=== PATIENT | male | born 1970 | race Caucasian/White ===

== ENCOUNTER 2019-11-25 16:32 | Emergency (ER) | payer OTHER ==
[~2019-11-25] VITALS: Ht 185.4 cm; Wt 102.3 kg
[2019-11-25 16:37] VITALS: BP 141/90
[2019-11-25] MEDS ORDERED: sulfamethoxazole/trimethoprim DS (800/160mg) tablet PO ONE (17:30)
[2019-11-25] MEDS ORDERED: SULF1TAB49 PO (17:43)
== END 2019-11-25 18:06 | disposition home or self-care (01) ==
LOC: ER 16:32
DX: L02.511 Cutaneous abscess of right hand (principal); M25.522 Pain in left elbow; M25.422 Effusion, left elbow; F12.90 Cannabis use, unspecified, uncomplicated; F15.90 Other stimulant use, unspecified, uncomplicated; F14.90 Cocaine use, unspecified, uncomplicated; Z72.89 Other problems related to lifestyle; Z79.2 Long term (current) use of antibiotics
CPT/HCPCS: 76882; 99284

== ENCOUNTER 2021-06-21 03:52 | Emergency (ER) | payer MEDICAID ==
[~2021-06-21] VITALS: Ht 188 cm; Wt 69.1 kg
[2021-06-21 04:07] VITALS: BP 146/92
== END 2021-06-21 16:38 | disposition left against medical advice (07) ==
LOC: ER 03:53
DX: L08.9 Local infection of the skin and subcutaneous tissue, unspecified (principal); Z53.21 Procedure and treatment not carried out due to patient leaving prior to being seen by health care provider

== ENCOUNTER 2022-05-23 10:56 | Emergency (ER) | payer MEDICAID ==
[~2022-05-23] VITALS: Ht 188 cm; Wt 93.2 kg
[2022-05-23] MEDS ORDERED: amLODIPine 5mg tablet PO ONE (11:10)
[2022-05-23] MEDS ORDERED: AMLO5TAB4 PO (11:12)
[2022-05-23 11:35] VITALS: BP 134/99
== END 2022-05-23 11:37 ==
LOC: ER 10:57
DX: I10 Essential (primary) hypertension (principal); F12.90 Cannabis use, unspecified, uncomplicated; F15.90 Other stimulant use, unspecified, uncomplicated; F14.90 Cocaine use, unspecified, uncomplicated; Z72.89 Other problems related to lifestyle; Z79.899 Other long term (current) drug therapy
CPT/HCPCS: 99283

== ENCOUNTER 2022-09-22 00:29 | Emergency (ER) | payer MEDICAID ==
[~2022-09-22] VITALS: Ht 188 cm; Wt 83.2 kg
[~2022-09-22 00:29] MED LIST: AMLO5TAB4 PO
[2022-09-22 01:12] VITALS: BP 144/94
[2022-09-22 02:46] LABS: CLARITY,URINE TURBID (Clear); COLOR,URINE YELLOW (Yellow); GLUCOSE, URINE NEGATIVE (Neg); KETONES,URINE NEGATIVE (Neg); LEUKOCYTE ESTERASE ,URINE SMALL (Neg); NITRITES, URINE POSITIVE (Neg); OCCULT BLOOD,URINE LARGE (Neg); PROTEIN,URINE 100 mg/dl (Neg); UROBILINOGEN,URINE 0.2 E.U/dL (0.2-1.0)
[2022-09-22 02:52] LABS: UA COLLECTION TYPE CLN CATCH MIDSTREAM
[2022-09-22 02:54] LABS: BACTERIA,URINE 3+ /HPF (Neg); RBC,URINE 20-50 /HPF (0-2); SQUAMOUS EPITHELIAL CELL,UR FEW /LPF (FEW); WBC,URINE TNTC /HPF (0-4)
== END 2022-09-22 06:49 | disposition left against medical advice (07) ==
LOC: ER 00:29
DX: N39.0 Urinary tract infection, site not specified (principal); Z53.21 Procedure and treatment not carried out due to patient leaving prior to being seen by health care provider
CPT/HCPCS: 81001; 87077; 87088; 87186; 99281